=== PATIENT | female | born 1975 | race African-American/Black ===

== ENCOUNTER 2018-08-17 04:29 | Emergency (ER) | payer BC, OTHER ==
[~2018-08-17] VITALS: Ht 162.6 cm; Wt 77.1 kg
[~2018-08-17 04:29] MED LIST: APAP500 PO; CARAFATE 11 GM/10 M1 PO; CELEXA40 MG; CIPRO500 MG; LORTAB 5 MG/5001 TAB PO; MACROBID; NAPROSYN500 MG PO; NORCO 5-325 TA1 EAC1; PHENERGAN 25 MG25 M1 PO; PREDNISONE 20 M20 MG PO; PRENATAL PO; PRILOSEC 20 MG20 MG PO; RESTLESS LEG MED PO; RESTORIL30 MG; TRAMADOL 50 MG50 MG PO; TUCKS MEDICATE1 EAC1; UNICOMPLEX M TA1 TA1; VENTOLIN HFA 1818 GM INH
[2018-08-17] MEDS ORDERED: NORVASC5 MG PO (04:47)
[2018-08-17 04:48] LABS: URINE BILIRUBIN NEGATIVE (Negative); URINE BLOOD NEGATIVE (Negative); URINE CLARITY CLEAR; URINE COLOR YELLOW; URINE GLUCOSE-RANDOM* NEGATIVE (Negative); URINE KETONES NEGATIVE (Negative); URINE LEUKOCYTES-REFLEX NEGATIVE (Negative); URINE NITRITE-REFLEX NEGATIVE (Negative); URINE PROTEIN (DIPSTICK) NEGATIVE (Negative); URINE SPECIFIC GRAVITY >= 1.030 (1.005-1.035); URINE UROBILINOGEN 0.2 E.U./dl (0.2-1.0)
[2018-08-17 04:57] LABS: HEMATOCRIT 41.3 % (37.0-47.0); HEMOGLOBIN 13.7 gm/dL (12.0-15.0); MCHC 33.1 g/dL (28.0-37.0); MCV 87.6 fL (80.0-100.0); PLATELET COUNT 260 thou/uL (150-400); RBC 4.72 mil/uL (4.20-5.00); RDW 14.2 % (10.5-14.5); WBC 3.7 thou/uL (4.0-11.0)
[2018-08-17 05:03] LABS: CREATININE 0.9 mg/dL (0.6-1.0); POTASSIUM 4.2 mmol/L (3.5-5.1)
[2018-08-17 05:09] LABS: ALBUMIN 3.6 g/dL (3.4-5.0); TOTAL BILIRUBIN 0.3 mg/dL (<0.1-1.0); TOTAL PROTEIN 7.5 g/dL (6.4-8.2)
[2018-08-17 05:14] LABS: ABSOLUTE NEUTROPHILS 2.3 thou/uL (1.4-8.2); ATYPICAL LYMPHS 1 %; METAMYELOCYTES 1 %
[2018-08-17 05:15] LABS: POLYCHROMASIA SLIGHT
[2018-08-17] MEDS ORDERED: NORCO 5-325 TA1 EACH PO (07:51)
[2018-08-17 08:06] VITALS: BP 124/78
[2018-08-17] MEDS ORDERED: MIRALAX17 GM PO (17:42)
== END 2018-08-17 08:10 | disposition home or self-care (01) ==
LOC: ER 04:29
PROVIDERS: Emergency Medicine
DX: R10.31 Right lower quadrant pain (principal); M25.551 Pain in right hip; I10 Essential (primary) hypertension; N80.9 Endometriosis, unspecified; G25.81 Restless legs syndrome; Z88.0 Allergy status to penicillin

== ENCOUNTER 2018-08-17 13:41 | Emergency (ER) | payer BC, OTHER ==
[~2018-08-17] VITALS: Ht 162.6 cm; Wt 77.1 kg
[~2018-08-17 13:41] MED LIST changes: +NORCO 5-325 TA1 EACH PO; +NORVASC5 MG PO
[2018-08-17 14:11] LABS: ABSOLUTE NEUTROPHILS 1.3 thou/uL (1.4-8.2); BASOPHILS 0.8 % (0.0-2.0); HEMATOCRIT 41.8 % (37.0-47.0); LYMPHOCYTES 45.5 % (24.0-44.0); MCH 29.5 pg (26.0-34.0); MCHC 33.4 g/dL (28.0-37.0); MCV 88.3 fL (80.0-100.0); MONOCYTES 11.1 % (1.0-8.0); PLATELET COUNT 254 thou/uL (150-400); POLYS 39.6 % (36.0-66.0); RBC 4.74 mil/uL (4.20-5.00); RDW 14.3 % (10.5-14.5); WBC 3.4 thou/uL (4.0-11.0)
[2018-08-17 14:20] LABS: CALCIUM 9.2 mg/dL (8.5-10.1); POTASSIUM 3.7 mmol/L (3.5-5.1)
[2018-08-17 14:26] LABS: ALBUMIN 3.5 g/dL (3.4-5.0); DIRECT BILIRUBIN 0.1 mg/dL (<0.1-0.3); TOTAL BILIRUBIN 0.4 mg/dL (<0.1-1.0); TOTAL PROTEIN 7.4 g/dL (6.4-8.2)
[2018-08-17] MEDS ORDERED: MIRALAX17 GM PO (17:42)
[2018-08-17 17:50] VITALS: BP 128/71
== END 2018-08-17 17:54 | disposition home or self-care (01) ==
LOC: ER 13:41
PROVIDERS: Emergency Medicine
DX: R10.31 Right lower quadrant pain (principal); G25.81 Restless legs syndrome; I10 Essential (primary) hypertension; Z88.0 Allergy status to penicillin

== ENCOUNTER 2019-12-01 21:22 | Emergency (ER) | payer BC, OTHER ==
[~2019-12-01] VITALS: Ht 162.6 cm; Wt 81.7 kg
[~2019-12-01 21:22] MED LIST changes: +MIRALAX17 GM PO
[2019-12-01 22:17] LABS: ABSOLUTE NEUTROPHILS 2.8 thou/uL (1.4-8.2); BASOPHILS 0.5 % (0.0-2.0); EOSINOPHILS 2.4 % (0.0-3.0); HEMATOCRIT 38.4 % (37.0-47.0); HEMOGLOBIN 12.3 gm/dL (12.0-15.0); LYMPHOCYTES 27.3 % (24.0-44.0); MCV 87.4 fL (80.0-100.0); MONOCYTES 7.7 % (1.0-8.0); PLATELET COUNT 266 thou/uL (150-400); POLYS 62.1 % (36.0-66.0); RBC 4.39 mil/uL (4.20-5.00); RDW 13.5 % (10.5-14.5); WBC 4.5 thou/uL (4.0-11.0)
[2019-12-01 22:26] LABS: ANION GAP 10 mmol/L (7-16); BUN 8 mg/dL (7-18); CALCIUM 8.9 mg/dL (8.5-10.1); CHLORIDE 103 mmol/L (98-107); CO2 26 mmol/L (21-32); CREATININE 0.7 mg/dL (0.6-1.0); GLUCOSE 101 mg/dL (74-106); POTASSIUM 3.3 mmol/L (3.5-5.1); SODIUM 139 mmol/L (136-145)
[2019-12-01 22:35] LABS: ALBUMIN 3.5 g/dL (3.4-5.0); SGOT 20 U/L (15-37); SGPT 29 U/L (30-65); TOTAL BILIRUBIN 0.2 mg/dL (<0.1-1.0); TOTAL PROTEIN 7.4 g/dL (6.4-8.2); TROPONIN-I <0.06 ng/mL (<0.06)
[2019-12-01] MEDS ORDERED: IBUPROFEN 400400 M2 PO (22:54)
[2019-12-01] MEDS ORDERED: ASPERCREME1 EACH TOP (22:54)
[2019-12-01 23:07] VITALS: BP 121/76
--- NOTE | 2019-12-02 10:52 | EKG ---
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
== END 2019-12-01 23:00 | disposition home or self-care (01) ==
LOC: ER 21:22
PROVIDERS: Student in an Organized Health Care Education/Training Program
DX: M94.0 Chondrocostal junction syndrome [Tietze] (principal); I10 Essential (primary) hypertension; G25.81 Restless legs syndrome; Z88.0 Allergy status to penicillin